=== PATIENT | female | born 1940 | race Two or more races ===

== ENCOUNTER 2017-09-23 10:18 | Outpatient (CLI) | payer OTHER ==
[~2017-09-23 10:18] MED LIST: ASPIR 8181 MG PO; IMDUR30 MG PO; OMEGA 3 FISH OI1 CAP PO; PLAVIX75 MG PO; TOPROL XL25 MG PO
== END 2017-09-23 10:40 | disposition home or self-care (01) ==
LOC: MRI 10:18
DX: M25.561 Pain in right knee (principal); M25.562 Pain in left knee
CPT/HCPCS: 73718; 73721

== ENCOUNTER → 2020-06-02 | Outpatient (CLI) | payer OTHER ==
[~2020-06-02] MED LIST changes: +ZANAFLEX2 MG PO
== END | disposition home or self-care (01) ==
LOC: RAD 10:05
PROVIDERS: ATTEND Internal Medicine Cardiovascular Disease
DX: M12.89 Other specific arthropathies, not elsewhere classified, multiple sites (principal); M46.47 Discitis, unspecified, lumbosacral region

== ENCOUNTER 2020-07-05 15:14 | Outpatient (CLI) | payer OTHER | END 2020-07-05 15:42 | disposition home or self-care (01) | LOC: RAD 15:14 | PROVIDERS: ATTEND Orthopaedic Surgery | DX: R07.89 Other chest pain (principal) ==